=== PATIENT | female | born 1995 | race Caucasian/White ===

== ENCOUNTER → 2018-11-18 | Outpatient (CLI) | payer OTHER ==
--- NOTE | 2018-11-18 11:19 | US ---
EXAMINATION TYPE: US abdomen complete DATE OF EXAM: 11/18/2018 COMPARISON: NONE CLINICAL HISTORY: R10.811 Right upper quadrant abdominal tenderness. Right flank pain and nausea x 3 weeks EXAM MEASUREMENTS: Liver Length: 16.5 cm Gallbladder Wall: 0.2 cm CBD: 0.2 cm Spleen: 10.1 cm Right Kidney: 11.5 x 5.0 x 6.1 cm Left Kidney: 11.1 x 5.3 x 4.5 cm Technically difficult study due to patient body habitus Pancreas: visualized portions wnl, tail obscured by overlying midline bowel gas Liver: wnl Gallbladder: wnl Evidence for sonographic Waldron's sign: no CBD: visualized portions wnl, limited by overlying bowel gas Spleen: wnl Right Kidney: wnl Left Kidney: wnl Upper IVC: wnl Abd Aorta: visualized portions wnl, limited by overlying midline bowel gas The visualized liver is homogenous. The intrahepatic portion of the IVC and visualized abdominal aor ta are within normal limits. There is no evidence of cholelithiasis. Common bile duct is unremarkab le. The visualized portions of the pancreas are homogenous. Portions of pancreas are obscured by ove rlying bowel gas on images saved. The spleen is unremarkable. Kidneys are symmetric and free of hydr onephrosis. No renal lesions are seen. IMPRESSION: Suboptimal study without suspicious finding seen to account for patient's symptoms.
== END | disposition home or self-care (01) ==
LOC: RADUSWWP 09:41
PROVIDERS: ATTEND Internal Medicine
DX: R10.811 Right upper quadrant abdominal tenderness (principal)
CPT/HCPCS: 76700

== ENCOUNTER → 2024-07-27 | Outpatient (CLI) | payer BC ==
--- NOTE | 2024-07-27 12:22 | CT ---
EXAMINATION TYPE: CT angio chest DATE OF EXAM: 07/27/2024 12:09 PM COMPARISON: 07/30/2023 HISTORY: THORACIC AORTIC ANEURYSM CT DLP: 1081 mGycm Automated exposure control for dose reduction was used. CONTRAST: CTA scan of the thorax is performed without and with IV Contrast, patient injected with 100 mL of Iso cezar 370, pulmonary embolism protocol. . FINDINGS: LUNGS: The lungs are grossly clear, there is no concerning parenchymal mass or nodule identified. T here is no pleural effusion or pneumothorax seen. The tracheobronchial tree is patent. Subsegmental consolidation most typical of atelectasis MEDIASTINUM: There is satisfactory enhancement of the pulmonary artery and its branches, there is no CT evidence for pulmonary embolism. There are no greater than 1 cm hilar or mediastinal lymph nodes. No pericardial effusion is seen. Residual thymic tissue. Aorta measures 4.1 cm along the ascending aorta. OTHER: Small hiatal hernia. Hypertrophic and degenerative changes of the spine. IMPRESSION: BORDERLINE ASCENDING THORACIC AORTIC ANEURYSM MEASURING 4.1 CM.
== END | disposition home or self-care (01) ==
LOC: RADCTMAIN 11:38
PROVIDERS: ATTEND Thoracic Surgery (Cardiothoracic Vascular Surgery)
DX: I71.20 Thoracic aortic aneurysm, without rupture, unspecified
CPT/HCPCS: 71275